=== PATIENT | female | born 1960 | race Caucasian/White ===

== ENCOUNTER 2020-05-25 09:58 | Emergency (ER) | payer MEDICARE, MEDICAID ==
[~2020-05-25] VITALS: Ht 167.6 cm; Wt 94.5 kg
[2020-05-25 10:05] VITALS: BP 115/67
[2020-05-25] MEDS ORDERED: acetaminophen 325mg tablet PO ONE (10:15)
== END 2020-05-25 13:17 | disposition home or self-care (01) ==
LOC: ER 09:59
DX: M25.552 Pain in left hip (principal); Z88.0 Allergy status to penicillin
CPT/HCPCS: 73502; 99283